=== PATIENT | female | born 1975 | race Caucasian/White ===

== ENCOUNTER 2016-11-13 20:04 | Emergency (ER) | payer OTHER | END 2016-11-13 20:55 | disposition home or self-care (01) | LOC: ER 20:04 | DX: S67.21XA Crushing injury of right hand, initial encounter (principal); W23.0XXA Caught, crushed, jammed, or pinched between moving objects, initial encounter; Y92.019 Unspecified place in single-family (private) house as the place of occurrence of the external cause; Z88.0 Allergy status to penicillin | CPT/HCPCS: 73130; 99283 ==